=== PATIENT | female | born 1945 | race Caucasian/White ===

== ENCOUNTER 2018-04-29 09:38 | Observation (INO) | payer OTHER ==
[~2018-04-29] VITALS: Ht 162.6 cm; Wt 63.4 kg
[~2018-04-29 09:38] MED LIST: Cipro PO; ESCITALOPRAM OX20 MG PO; Flagyl PO; HYDROCHLOROTHIA25 MG PO; LIPITOR20 MG PO; Lipitor PO; Percocet 5/325,Endoc PO; Protonix PO; Ultram PO; VASOTEC10 MG PO
[2018-04-29 10:41] LABS: HEMATOCRIT 38.3 % (36.0-46.0); HEMOGLOBIN 14.1 G/DL (11.9-15.5); MCH 34.6 PG (29.0-34.0); MCHC 36.8 G/DL (30.0-36.0); MCV 93.9 FL (83-99); PLATELET COUNT 186 K/uL (156-360); RBC DIS.WIDTH-CV 11.6 % (11.8-14.6); RBC DIS.WIDTH-SD 40.1 % (39-53); RED BLOOD COUNT 4.08 M/uL (3.80-5.20)
[2018-04-29 11:09] LABS: CHLORIDE 89 MEQ/L (99-109); CREATININE 0.7 MG/DL (0.6-1.3); GFR ESTIMATE (CALCULATED) > 59 mL/min/; GLUCOSE 115 mg/dL (70-99); SODIUM 127 MEQ/L (136-147); UREA NITROGEN (BUN) 12 mg/dL (9-23)
[2018-04-29 11:12] LABS: TROP-I INTERPRETATION NEGATIVE; TROPONIN-I < 0.01 ng/mL (0.0-0.30)
[2018-04-29] MEDS ORDERED: TYLENOL EXTRA500 MG PO (15:39)
[2018-04-29 18:25] VITALS: BP 128/70
[2018-04-29 19:51] VITALS: BP 111/61
[2018-04-29 23:32] VITALS: BP 139/72
[2018-04-30 03:59] VITALS: BP 126/79
[2018-04-30 07:04] LABS: CHLORIDE 95 MEQ/L (99-109); CREATININE 0.7 MG/DL (0.6-1.3); GFR ESTIMATE (CALCULATED) > 59 mL/min/; GLUCOSE 101 mg/dL (70-99); POTASSIUM 4.1 MEQ/L (3.7-5.4); SODIUM 132 MEQ/L (136-147); UREA NITROGEN (BUN) 13 mg/dL (9-23)
[2018-04-30 07:37] VITALS: BP 117/68
[2018-04-30] MEDS ORDERED: NICOTINE PATCH1 EAC2 TD (10:02)
[2018-04-30] MEDS ORDERED: LIBRIUM25 MG PO (10:06)
[2018-04-30] MEDS ORDERED: FOLIC ACID1 MG PO (10:07)
[2018-04-30] MEDS ORDERED: Thiamine,Vitamin B1 PO (10:07)
[2018-04-30] MEDS ORDERED: CALCIUM 500-VI1 EAC1 PO (10:19)
== END 2018-04-30 11:30 | disposition home or self-care (01) ==
LOC: EME 09:38 → EDOF 14:45 → 3EAST 14:45 → ENRESERV 14:47 → 3EAST 18:00
PROVIDERS: Student in an Organized Health Care Education/Training Program
DX: E87.1 Hypo-osmolality and hyponatremia (principal); I10 Essential (primary) hypertension; S02.2XXA Fracture of nasal bones, initial encounter for closed fracture; F10.10 Alcohol abuse, uncomplicated; F17.200 Nicotine dependence, unspecified, uncomplicated; G25.0 Essential tremor; F32.9 Major depressive disorder, single episode, unspecified; F41.9 Anxiety disorder, unspecified; S00.03XA Contusion of scalp, initial encounter; S40.012A Contusion of left shoulder, initial encounter; W10.9XXA Fall (on) (from) unspecified stairs and steps, initial encounter; Z88.2 Allergy status to sulfonamides; Z88.0 Allergy status to penicillin
CPT/HCPCS: 70450; 70486; 71046; 72125; 73030; 80048; 82306; 82436; 83930; 83935; 84300; 84484; 85027; 93005; 99281; 99285; G0378; G8978 GP CH; G8979 GP CH; G8980 GP CH; G8987 GO CH; G8988 GO CH; G8989 GO CH; J1644; J7030